=== PATIENT | female | born 1995 | race Caucasian/White ===

== ENCOUNTER 2020-07-13 03:24 | Emergency (ER) | payer OTHER, MEDICAID ==
[~2020-07-13] VITALS: Ht 162.6 cm; Wt 74.8 kg
[2020-07-13] MEDS ORDERED: PAROXETINE CR12.5 MG PO (03:41)
[2020-07-13] MEDS ORDERED: TRAZODONE HCL100 MG PO (03:42)
[2020-07-13] MEDS ORDERED: CLONAZEPAM 1 MG1 M1 PO (03:42)
[2020-07-13] MEDS ORDERED: LAMOTRIGINE ODT25 MG PO (03:42)
[2020-07-13] MEDS ORDERED: ABILIFY 5 MG TAB5 M1 PO (03:43)
[2020-07-13 03:44] LABS: URINE BILIRUBIN NEGATIVE (Negative); URINE BLOOD NEGATIVE (Negative); URINE CLARITY CLEAR; URINE COLOR DARK YELLOW; URINE GLUCOSE-RANDOM NEGATIVE (Negative); URINE KETONES NEGATIVE (Negative); URINE LEUKOCYTES-REFLEX NEGATIVE (Negative); URINE NITRITE-REFLEX NEGATIVE (Negative); URINE PROTEIN NEGATIVE (Negative); URINE SPECIFIC GRAVITY 1.025 (1.005-1.030)
[2020-07-13] MEDS ORDERED: FLAGYL500 M1 PO (04:42)
[2020-07-13] MEDS ORDERED: CEPHALEXIN500 MG PO (04:42)
[2020-07-13 04:47] VITALS: BP 148/51
== END 2020-07-13 04:47 | disposition home or self-care (01) ==
LOC: M.ERS 03:24
PROVIDERS: Personal Emergency Response Attendant
DX: N76.0 Acute vaginitis (principal); B96.89 Other specified bacterial agents as the cause of diseases classified elsewhere